=== PATIENT | male | born 1990 | race Caucasian/White ===

== ENCOUNTER 2024-03-10 18:40 | Emergency (ER) | payer BC, MEDICAID ==
[2024-03-10] MEDS: Benzonatate 100 MG Cap PO ONE (18:57)
[2024-03-10] MEDS: Albuterol 6.7 GM Inhaler INH ONE (18:57)
[2024-03-10] MEDS: predniSONE 20 MG Tab PO ONE (18:57)
[2024-03-10 19:06] LABS: BASOPHILS ABSOLUTE AUTO 0.05 K/uL (0.00-0.20); BASOPHILS PERCENT AUTO 0.8 % (0.0-2.0); EOSINOPHILS PERCENT AUTO 4.9 % (0.0-5.0); HEMATOCRIT 46.7 % (39.0-49.0); HEMOGLOBIN 16.3 g/dL (13.1-16.8); LYMPHOCYTES PERCENT AUTO 32.9 % (10.0-50.0); MEAN CORPUSCULAR HEMOGLOBIN 32.2 pg (28.2-33.3); MEAN CORPUSCULAR HGB CONC 34.9 g/dL (31.7-36.0); MEAN CORPUSCULAR VOLUME 92.3 fL (84.0-98.0); MONOCYTES ABSOLUTE AUTO 0.57 K/uL (0.00-1.00); MONOCYTES PERCENT AUTO 9.4 % (2.0-14.0); NEUTROPHILS ABSOLUTE AUTO 3.16 K/uL (1.40-7.00); PLATELET COUNT,PLT 212 K/uL (150-350); RED BLOOD CELL COUNT 5.06 M/uL (4.33-5.41); RED CELL DISTRIBUTION WIDTH 13.8 % (11.2-14.1); WHITE BLOOD CELL COUNT,WBC 6.1 K/uL (4.0-10.2)
[2024-03-10 19:23] LABS: ALANINE AMINOTRANSFERASE,ALT 124 U/L (12-78); ALBUMIN 4.1 g/dL (3.4-5.0); ALKALINE PHOSPHATASE 153 IU/L (46-116); ANION GAP 9.7 meq/L (7-15); ASPARTATE AMNIOTRANSFERASE,AST 52 U/L (15-37); BILIRUBIN TOTAL 0.4 mg/dL (0.2-1.0); BLOOD UREA NITROGEN,BUN 14 mg/dL (7-18); CALCIUM 9.2 mg/dL (8.5-10.1); CARBON DIOXIDE,CO2 27.3 mmol/L (21.0-32.0); CHLORIDE,CL 106 mmol/L (98-107); CREATININE 1.29 mg/dL (0.51-1.17); ESTIMATED GFR 76 mL/min (>=60); GLUCOSE RANDOM 92 mg/dL (70-99); MAGNESIUM 2.2 mg/dL (1.8-2.4); POTASSIUM,K 3.9 mmol/L (3.5-5.1); SODIUM,NA 143 mmol/L (136-145)
[2024-03-10 19:46] LABS: CORONAVIRUS COVID-19 NAA NEGATIVE (NEGATIVE); INFLUENZA A NAA NEGATIVE (NEGATIVE); INFLUENZA B NAA NEGATIVE (NEGATIVE); RESPIRATORY SYNCYTIAL VIR NAA NEGATIVE (NEGATIVE)
[2024-03-10] MEDS: Doxycycline Monohydrate 100 MG Cap PO ONE (19:53)
== END 2024-03-10 20:05 | disposition home or self-care (01) ==
LOC: LL.ED 18:40
DX: J98.8 Other specified respiratory disorders (principal); J45.909 Unspecified asthma, uncomplicated; Z86.16 Personal history of COVID-19
CPT/HCPCS: 0241U; 36415; 71046; 80053; 83735; 85025; 85379; 99283; 99285; A9270-GY; J7512